=== PATIENT | male | born 1985 | race Hispanic/Latino ===

== ENCOUNTER 2017-08-16 11:21 | Emergency (ER) | payer SELFPAY ==
--- NOTE | 2017-09-08 15:14 | EKG ---
Test Reason : Blood Pressure : / mmHG Vent. Rate : 073 BPM Atrial Rate : 073 BPM P-R Int : 128 ms QRS Dur : 084 ms QT Int : 360 ms P-R-T Axes : -08 086 034 degrees QTc Int : 396 ms Normal sinus rhythm Normal ECG Confirmed by UBALDO ASHRAF, WOLFGANG ([id number]), roofing technician ARNAV TOSCANO ([id number]) on 09/08/2017 3:14:11 PM Referred By: Confirmed By:WOLFGANG CONNER MD
== END 2017-08-16 12:42 | disposition home or self-care (01) ==
LOC: ERS 11:21
DX: J11.1 Influenza due to unidentified influenza virus with other respiratory manifestations (principal); J45.909 Unspecified asthma, uncomplicated; R56.9 Unspecified convulsions; F17.210 Nicotine dependence, cigarettes, uncomplicated
CPT/HCPCS: 93005

== ENCOUNTER 2018-12-17 17:02 | Emergency (ER) | payer BC, SELFPAY ==
[2018-12-17] MEDS ORDERED: Ketorolac Tromethamine 30 MG/ML VIAL ONE (18:22)
== END 2018-12-17 18:58 | disposition home or self-care (01) ==
LOC: ERS 17:02
DX: K04.7 Periapical abscess without sinus (principal); J45.909 Unspecified asthma, uncomplicated; F17.210 Nicotine dependence, cigarettes, uncomplicated
CPT/HCPCS: 96372; J1885

== ENCOUNTER 2019-09-13 10:10 | Inpatient (IN) | payer BC ==
[2019-09-13] MEDS ORDERED: Dextrose 50% Abboject 50 ML SYRINGE SLOW IVP PRN (17:23)
[2019-09-13] MEDS ORDERED: Dextrose 5% in Water 1,000 ML IV PRN (17:23)
[2019-09-13] MEDS ORDERED: Ventilator Sedation Protocol 1 EACH FS ONE (17:38)
[2019-09-13] MEDS ORDERED: DISCONTINUE PREVIOUS NARCOTIC PAIN MEDICATIONS AND BENZODIAZEPINES FS SCH (17:46)
[2019-09-13] MEDS ORDERED: Propofol BOLUS 1,000 MG/100 ML VIAL IV PRN (17:46)
[2019-09-13] MEDS ORDERED: Morphine 2 MG/ML SYRINGE SLOW IVP PRN (17:46)
[2019-09-13] MEDS ORDERED: Fentanyl BOLUS 250 ML IVPB PRN (17:46)
[2019-09-13] MEDS ORDERED: Lorazepam 2 MG/ML VIAL SLOW IVP PRN (17:46)
[2019-09-13] MEDS: fentaNYL Citrate/PF 2,000 MCG in Sodium Chloride 0.9% 60 ML IV SCH (17:53)
[2019-09-13] MEDS: Sodium Chloride 0.9% 1,000 ML IV SCH (18:01)
[2019-09-13 18:03] VITALS: BMI 24.5
--- NOTE | 2019-09-13 18:28 | RAD ---
Chest AP view INDICATION: History of intubation and new admit COMPARISON: September 08, 2019 FINDINGS: Lungs:There are patchy airspace opacity within the left lower lobe and lingula which may reflect resi dual contusion or pulmonary edema. The right lung is clear. Cardiac silhouette:The cardiomediastinal silhouette appears within normal limits. Pulmonary vasculature:Normal Pleural spaces:There is a left-sided thoracostomy tube. No definite residual pneumothorax is noted. Upper abdomen:There is a Dobbhoff feeding tube tip projecting in the region of the gastric antrum. Osseous structures: No acute osseous abnormality. Additional findings:ET tube tip is seen at the level of thoracic inlet. IMPRESSION: Patchy opacities within the left lower lobe and lingula may reflect residual pulmonary co ntusions or residual pulmonary edema. No pneumothorax. Stable left-sided thoracostomy tubes, ET tube with a new Dobbhoff feeding tube.
[2019-09-13 18:40] LABS: #Lymphocytes 0.8 thou/uL (1.20-3.40); #Neutrophils 10.1 thou/uL (1.40-6.50); %Basophils 0.2 % (0.0-1.0); %Eosinophils 0.3 % (0.0-10.0); %Lymphocytes 6.7 % (21.0-51.0); %Monocytes 8.3 % (0.0-10.0); %Neutrophils 84.5 % (42.0-75.0); Hemoglobin 8.7 g/dL (14.0-18.0); Mean Corpuscular HGB CONC 33.6 g/dL (32.0-36.0); Mean Corpuscular Hemoglobin 32.1 pg (27.0-31.0); Mean Corpuscular Volume 95.6 fL (78.0-98.0); Mean Platelet Volume 7.9 fL (7.4-10.4); Platelet Count 255 thou/uL (130-400); RBC Distribution Width 12.9 % (11.5-14.5); Red Blood Cell (RBC) Count 2.71 mill/uL (4.70-6.10); White Blood Cell (WBC) Count 11.9 thou/uL (4.8-10.8)
[2019-09-13 18:41] LABS: Actual Bicarbonate (HCO3a) 22.6 mEq/L (22-28); Base Excess (BEa) -0.9 mEq/L (-2.0 to +3.0); CO2 Tension 32.3 mmHg (35.0-45.0); Calcium, Ionized 1.08 mmol/L (1.12-1.30); Carboxyhemoglobin (COHb) 0.4 gm% (0.0-3.0); Hemoglobin (Hb) 8.9 g/dL (14.0-18.0); O2 Tension (PaO2) 111.3 mmHg (80.0-100.0); Potassium - ABG Lab 4.05 mmol/L (3.70-5.30); pH, Arterial 7.46 (7.35-7.45)
[2019-09-13 18:42] LABS: ALV-art Gradient 133.525 (0-20); Puncture Site ALINE
[2019-09-13] MEDS ORDERED: Calcium Chloride 1 GM/10 ML Abboject SYRINGE IVP SCH (19:00)
[2019-09-13] MEDS ORDERED: Vancomycin HCl 1 GM in Premix Bag 1 BAG IVPB SCH (19:00)
[2019-09-13 19:03] LABS: Anion Gap 13 mmol/L (10-20); BUN (Urea Nitrogen) 8 mg/dL (8.9-20.6); Calc. Creatinine Clearance 167 mL/min (70-130); Calcium 7.9 mg/dL (7.8-10.44); Carbon Dioxide 20 mmol/L (22-29); Chloride 108 mmol/L (98-107); Estimated GFR-MDRD Greater than 90; Glucose 120 mg/dL (70-105); Magnesium 2.2 mg/dL (1.6-2.6); Potassium 4.3 mmol/L (3.5-5.1); Sodium 137 mmol/L (136-145)
[2019-09-13] MEDS: Piperacillin/Tazobactam 3.375 GM in Sodium Chloride 0.9% 100 ML IVPB SCH (19:47)
[2019-09-13] MEDS: Vancomycin HCl 1 GM in Premix Bag 1 BAG IVPB SCH (19:49)
[2019-09-13] MEDS ORDERED: Potassium Phosphate 30 MMOL in Sodium Chloride 0.9% 500 ML IVPB SCH (20:00)
[2019-09-13] MEDS ORDERED: Acetaminophen 500 MG TAB PO SCH (20:00)
[2019-09-13] MEDS: hydrALAZINE 20 MG/ML VIAL SLOW IVP PRN (20:11)
[2019-09-13] MEDS: Famotidine/PF 20 mg/2ml Vial SLOW IVP SCH (22:14)
[2019-09-13] MEDS: Senokot S 8.6-50 MG TAB PO SCH (22:14)
[2019-09-13] MEDS: Propofol 1,000 MG/100 ML VIAL IV PRN (22:15)
[2019-09-14] MEDS: Piperacillin/Tazobactam 3.375 GM in Sodium Chloride 0.9% 100 ML IVPB SCH ×5 (00:03→23:43)
[2019-09-14] MEDS: Acetaminophen 650 MG/20.3 ML UDCUP PO SCH ×4 (01:23→20:37)
[2019-09-14] MEDS: Propofol 1,000 MG/100 ML VIAL IV PRN ×6 (01:35→23:42)
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
[2019-09-14] MEDS: Vancomycin HCl 1 GM in Premix Bag 1 BAG IVPB SCH ×3 (03:12→20:24)
[2019-09-14 04:24] LABS: Anion Gap 17 mmol/L (10-20); BUN (Urea Nitrogen) 12 mg/dL (8.9-20.6); Calc. Creatinine Clearance 151 mL/min (70-130); Calcium 8.3 mg/dL (7.8-10.44); Carbon Dioxide 19 mmol/L (22-29); Chloride 109 mmol/L (98-107); Estimated GFR-MDRD Greater than 90; Glucose 129 mg/dL (70-105); Magnesium 2.1 mg/dL (1.6-2.6); Potassium 5.9 mmol/L (3.5-5.1); Sodium 139 mmol/L (136-145)
[2019-09-14 04:34] LABS: Band 1 % (5-11); Hemoglobin 8.4 g/dL (14.0-18.0); Lymphocytes 8 % (21-51); MDiff Complete? YES; Mean Corpuscular HGB CONC 34.8 g/dL (32.0-36.0); Mean Corpuscular Hemoglobin 32.9 pg (27.0-31.0); Mean Corpuscular Volume 94.5 fL (78.0-98.0); Mean Platelet Volume 9.6 fL (7.4-10.4); Monocytes 13 % (0-10); Neutrophil 77 % (42-75); Platelet Count 172 thou/uL (130-400); RBC Distribution Width 13.1 % (11.5-14.5); Red Blood Cell (RBC) Count 2.55 mill/uL (4.70-6.10); White Blood Cell (WBC) Count 11.2 thou/uL (4.8-10.8)
[2019-09-14] MEDS: Sodium Chloride 0.9% 1,000 ML IV SCH ×3 (05:04→23:44)
[2019-09-14] MEDS: fentaNYL Citrate/PF 2,000 MCG in Sodium Chloride 0.9% 60 ML IV SCH ×2 (05:31→19:01)
[2019-09-14 06:43] LABS: Actual Bicarbonate (HCO3a) 22.9 mEq/L (22-28); Base Excess (BEa) -1.2 mEq/L (-2.0 to +3.0); CO2 Tension 35.3 mmHg (35.0-45.0); Calcium, Ionized 1.11 mmol/L (1.12-1.30); Carboxyhemoglobin (COHb) 1.7 gm% (0.0-3.0); O2 Tension (PaO2) 103.9 mmHg (80.0-100.0); Potassium - ABG Lab 3.84 mmol/L (3.70-5.30); pH, Arterial 7.43 (7.35-7.45)
[2019-09-14 06:44] LABS: Phosphorus 3.5 mg/dL (2.3-4.7)
[2019-09-14 06:45] LABS: ALV-art Gradient 137.175 (0-20); Puncture Site ALINE
[2019-09-14] MEDS: Famotidine/PF 20 mg/2ml Vial SLOW IVP SCH ×2 (08:26→20:38)
[2019-09-14] MEDS: Senokot S 8.6-50 MG TAB PO SCH ×2 (08:26→20:38)
[2019-09-14] MEDS: Chlorhexidine Gluconate 15 ML UDCUP SSP SCH ×2 (08:26→20:38)
[2019-09-14] MEDS: Polyethylene Glycol 3350 17 GM Packet PO SCH (08:27)
[2019-09-14] MEDS ORDERED: levETIRAcetam 500 MG in Sodium Chloride 0.9% 100 ML IVPB SCH (09:00)
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
[2019-09-14 16:35] LABS: Anion Gap 12 mmol/L (10-20); BUN (Urea Nitrogen) 10 mg/dL (8.9-20.6); Calc. Creatinine Clearance 144 mL/min (70-130); Calcium 7.9 mg/dL (7.8-10.44); Carbon Dioxide 25 mmol/L (22-29); Chloride 106 mmol/L (98-107); Estimated GFR-MDRD Greater than 90; Glucose 105 mg/dL (70-105); Magnesium 1.9 mg/dL (1.6-2.6); Potassium 3.8 mmol/L (3.5-5.1); Sodium 139 mmol/L (136-145)
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
--- NOTE | 2019-09-14 18:51 | RAD ---
XR Forearm Rt 2 View STANDARD INDICATION: Postop right forearm FINDINGS: Bones: Since the comparison examination dated September 08, 2019, there has been interval open reductio n and internal fixation of the right both bone forearm fracture. Fracture alignment is near anatomic. Joints: No acute abnormality. Soft tissues: No radiopaque foreign body is evident. IMPRESSION: ORIF of the right both bone forearm fracture
[2019-09-14] MEDS: hydrALAZINE 20 MG/ML VIAL SLOW IVP PRN ×2 (19:35→23:43)
[2019-09-14 19:38] LABS: Vancomycin, Trough 7.9 ug/mL
[2019-09-14] MEDS: Vancomycin 1.5 GRAM/300 ML BAG 1.5 GM in Premix Bag 1 BAG IVPB SCH (20:48)
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
[2019-09-15] MEDS: Acetaminophen 650 MG/20.3 ML UDCUP PO SCH ×4 (01:15→20:07)
[2019-09-15] MEDS: Propofol 1,000 MG/100 ML VIAL IV PRN ×2 (03:48→07:56)
[2019-09-15] MEDS: hydrALAZINE 20 MG/ML VIAL SLOW IVP PRN ×2 (03:48→07:42)
[2019-09-15] MEDS: Vancomycin 1.5 GRAM/300 ML BAG 1.5 GM in Premix Bag 1 BAG IVPB SCH ×3 (04:00→21:17)
[2019-09-15 04:28] LABS: #Eosinphils 0.1 thou/uL (0.0-0.7); #Lymphocytes 1.1 thou/uL (1.20-3.40); #Monocytes 1.4 thou/uL (0.11-0.59); #Neutrophils 10.2 thou/uL (1.40-6.50); %Basophils 0.2 % (0.0-1.0); %Eosinophils 0.5 % (0.0-10.0); %Lymphocytes 8.7 % (21.0-51.0); %Monocytes 11.2 % (0.0-10.0); %Neutrophils 79.5 % (42.0-75.0); Mean Corpuscular HGB CONC 31.4 g/dL (32.0-36.0); Mean Corpuscular Hemoglobin 29.9 pg (27.0-31.0); Mean Corpuscular Volume 95.3 fL (78.0-98.0); Mean Platelet Volume 8.3 fL (7.4-10.4); Platelet Count 322 thou/uL (130-400); RBC Distribution Width 13.4 % (11.5-14.5); Red Blood Cell (RBC) Count 2.69 mill/uL (4.70-6.10); White Blood Cell (WBC) Count 12.9 thou/uL (4.8-10.8)
[2019-09-15] MEDS ORDERED: Metoprolol Tartrate 5 MG/5 ML VIAL IVP PRN (04:33)
[2019-09-15 04:41] LABS: Anion Gap 10 mmol/L (10-20); BUN (Urea Nitrogen) 11 mg/dL (8.9-20.6); Calc. Creatinine Clearance 154 mL/min (70-130); Calcium 7.8 mg/dL (7.8-10.44); Carbon Dioxide 24 mmol/L (22-29); Chloride 106 mmol/L (98-107); Estimated GFR-MDRD Greater than 90; Glucose 112 mg/dL (70-105); Magnesium 2.2 mg/dL (1.6-2.6); Phosphorus 3.3 mg/dL (2.3-4.7); Potassium 4.1 mmol/L (3.5-5.1); Sodium 136 mmol/L (136-145)
[2019-09-15] MEDS ORDERED: Midazolam HCl 2 mg/2 ml Vial SLOW IVP SCH ×2 (04:45)
[2019-09-15] MEDS: Piperacillin/Tazobactam 3.375 GM in Sodium Chloride 0.9% 100 ML IVPB SCH ×3 (05:17→17:32)
[2019-09-15] MEDS: fentaNYL Citrate/PF 2,000 MCG in Sodium Chloride 0.9% 60 ML IV SCH ×2 (06:44→21:11)
--- NOTE | 2019-09-15 07:41 | RAD ---
RADIOGRAPH CHEST 1 VIEW: DATE: 09/15/2019 TIME: 6:54 AM HISTORY: 34-year-old male in respiratory failure COMPARISON: 09/13/2019 FINDINGS: Dobbhoff feeding tube, separate esophagogastric tube, and probable endotracheal tube, remain. New fin ding of tiny, less than 5% left apical pneumothorax. Left-sided chest tube remains. Overlapping the chest tube, faint transverse band of pulmonary parenchymal density remains. Improvement in the airspa ce density size at left lower lobe. No pulmonary edema or cardiomegaly. IMPRESSION: 1. Tiny, less than 5% left apical pneumothorax. 2. Interval improvement in the left lower lobe atelectasis or infiltrate, now mild and subsegmental.
--- NOTE | 2019-09-15 07:46 | RAD ---
Radiograph abdomen one view: DATE: 09/15/2019 Time: 6:56 AM HISTORY: 34-year-old male status post feeding tube placement FINDINGS: Dobbhoff feeding tube distal tip is in the right upper quadrant, in the expected location of gastrodu odenal junction. Stomach is decompressed. A separate esophagogastric tube distal tip points laterally in the left upper quadrant, at gastric fundus. IMPRESSION: Dobbhoff feeding tube and standard esophagogastric tube.
[2019-09-15 08:58] LABS: Vancomycin, Trough 16.8 ug/mL
[2019-09-15] MEDS: Chlorhexidine Gluconate 15 ML UDCUP SSP SCH ×2 (09:34→20:58)
[2019-09-15] MEDS: Polyethylene Glycol 3350 17 GM Packet PO SCH (09:34)
[2019-09-15] MEDS: Senokot S 8.6-50 MG TAB PO SCH ×2 (09:35→20:08)
[2019-09-15] MEDS: Famotidine/PF 20 mg/2ml Vial SLOW IVP SCH (10:05)
[2019-09-15] MEDS ORDERED: Vecuronium 10 MG VIAL ONE (10:46)
[2019-09-15] MEDS ORDERED: Labetalol HCl 100 MG/20 ML VIAL ONE (12:09)
[2019-09-15] MEDS ORDERED: Labetalol HCl 100 MG/20 ML VIAL SLOW IVP SCH (12:15)
[2019-09-15] MEDS ORDERED: Lidocaine 1% w/Epinephrine 1:100K 20 ML VIAL ONE (13:42)
--- NOTE | 2019-09-15 14:49 | RAD ---
Exam: 1 view abdomen HISTORY: Status post Dobbhoff feeding tube placement COMPARISON: 09/15/2019 at 6:56 AM FINDINGS: Dobbhoff feeding tube appears to have slightly pulled back and is now in the proximal body of the stomach. IMPRESSION: Dobbhoff feeding tube as above.
[2019-09-15] MEDS: Sodium Chloride 0.9% 1,000 ML IV SCH (15:17)
[2019-09-15] MEDS ORDERED: Furosemide 20 MG/2 ML VIAL SLOW IVP SCH (15:30)
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
[2019-09-15] MEDS: Gabapentin 300 MG CAP PO SCH (20:08)
[2019-09-15 20:33] LABS: Vancomycin, Trough 11.5 ug/mL
[2019-09-15] MEDS: Pantoprazole 40 MG VIAL IVP SCH (20:59)
[2019-09-16] MEDS: Piperacillin/Tazobactam 3.375 GM in Sodium Chloride 0.9% 100 ML IVPB SCH ×5 (00:02→23:18)
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
[2019-09-16] MEDS: Acetaminophen 650 MG/20.3 ML UDCUP PO SCH ×4 (02:22→21:25)
[2019-09-16] MEDS: Vancomycin 1.5 GRAM/300 ML BAG 1.5 GM in Premix Bag 1 BAG IVPB SCH (04:37)
--- NOTE | 2019-09-16 08:24 | ULT ---
EXAM: Bilateral lower extremity venous Doppler US HISTORY: bilateral lower extremity edema and pain FINDINGS: Grayscale, color-flow, Doppler evaluation, spectral analysis of the bilateral lower extremities venou s structures is performed with 2-D imaging. The bilateral common femoral, superficial femoral, popliteal, posterior tibial, proximal greater saphenous and profunda femoral veins are imaged. There is normal luminal compressibility, flow, and augmentation in the visualized deep venous structu res of the bilateral lower extremities. IMPRESSION: No evidence of a deep vein thrombosis in either lower extremity.
[2019-09-16] MEDS: Chlorhexidine Gluconate 15 ML UDCUP SSP SCH ×2 (08:57→21:25)
[2019-09-16] MEDS: Pantoprazole 40 MG VIAL IVP SCH ×2 (08:57→21:26)
[2019-09-16] MEDS: Gabapentin 300 MG CAP PO SCH ×3 (08:57→21:25)
[2019-09-16] MEDS: Polyethylene Glycol 3350 17 GM Packet PO SCH (08:58)
[2019-09-16] MEDS: Senokot S 8.6-50 MG TAB PO SCH ×2 (08:58→21:26)
--- NOTE | 2019-09-16 08:58 | RAD ---
CHEST 1 VIEW: HISTORY: Chest tube removal. FINDINGS: Tracheostomy tube and Dobbhoff tubes remain in place. Removal of the left chest tube. No significan t pneumothorax. There is fairly extensive artifact overlying the chest somewhat obscuring it. No co nfluent pneumonia or overt edema. IMPRESSION: Removal of the left chest tube without significant pneumothorax. Tracheostomy tube and Dobbhoff tube . No significant new process. POS: TPC
[2019-09-16 10:15] LABS: Anion Gap 11 mmol/L (10-20); BUN (Urea Nitrogen) 20 mg/dL (8.9-20.6); Calc. Creatinine Clearance 151 mL/min (70-130); Calcium 8.4 mg/dL (7.8-10.44); Carbon Dioxide 24 mmol/L (22-29); Chloride 105 mmol/L (98-107); Estimated GFR-MDRD Greater than 90; Glucose 154 mg/dL (70-105); Phosphorus 1.8 mg/dL (2.3-4.7); Potassium 3.4 mmol/L (3.5-5.1); Sodium 137 mmol/L (136-145)
[2019-09-16] MEDS ORDERED: Potassium Phosphate 15 MMOL in Sodium Chloride 0.9% 250 ML 250 ML IVPB SCH ×2 (10:30→17:30)
[2019-09-16] MEDS: cloNIDine 0.1 MG TAB PO SCH ×2 (11:25→18:26)
[2019-09-16] MEDS: fentaNYL Citrate/PF 2,000 MCG in Sodium Chloride 0.9% 60 ML IV SCH (15:00)
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
[2019-09-16] MEDS ORDERED: Lorazepam 2 MG/ML VIAL ONE (17:05)
[2019-09-16] MEDS ORDERED: cloNIDine 0.3 MG TAB PO SCH (17:07)
[2019-09-16] MEDS ORDERED: Lorazepam 2 MG/ML VIAL SLOW IVP SCH (17:15)
[2019-09-16] MEDS: cloNIDine 0.3 MG TAB PO SCH ×2 (17:56→23:17)
[2019-09-16] MEDS: HYDROcodone/Acetaminophen 10/325 mg Tablet PO SCH ×2 (17:56→23:17)
[2019-09-16] MEDS: Enoxaparin Sodium 40 MG/0.4 ML SYRINGE SC SCH (21:25)
[2019-09-16] MEDS: Diazepam 5 MG TAB PO SCH (21:25)
[2019-09-16] MEDS: Melatonin 3 MG TAB PO SCH (21:25)
[2019-09-16] MEDS: Propofol 1,000 MG/100 ML VIAL IV PRN (23:30)
[2019-09-17] MEDS: Acetaminophen 650 MG/20.3 ML UDCUP PO SCH ×4 (02:17→19:55)
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
[2019-09-17 04:14] LABS: Anion Gap 14 mmol/L (10-20); BUN (Urea Nitrogen) 21 mg/dL (8.9-20.6); Calc. Creatinine Clearance 161 mL/min (70-130); Calcium 8.6 mg/dL (7.8-10.44); Carbon Dioxide 21 mmol/L (22-29); Chloride 107 mmol/L (98-107); Estimated GFR-MDRD Greater than 90; Glucose 100 mg/dL (70-105); Magnesium 2.3 mg/dL (1.6-2.6); Phosphorus 3.5 mg/dL (2.3-4.7); Potassium 3.8 mmol/L (3.5-5.1); Sodium 138 mmol/L (136-145)
[2019-09-17 04:26] LABS: Band 4 % (5-11); Eosinophils 4 % (0-10); Hemoglobin 8.2 g/dL (14.0-18.0); Lymphocytes 23 % (21-51); MDiff Complete? YES; Mean Corpuscular HGB CONC 32.2 g/dL (32.0-36.0); Mean Corpuscular Hemoglobin 30.7 pg (27.0-31.0); Mean Corpuscular Volume 95.4 fL (78.0-98.0); Mean Platelet Volume 8.2 fL (7.4-10.4); Monocytes 12 % (0-10); Neutrophil 56 % (42-75); Platelet Count 501 thou/uL (130-400); RBC Distribution Width 13.3 % (11.5-14.5); Reactive Lymphocytes 1 % (0-10); Red Blood Cell (RBC) Count 2.66 mill/uL (4.70-6.10); White Blood Cell (WBC) Count 12.2 thou/uL (4.8-10.8)
[2019-09-17] MEDS: HYDROcodone/Acetaminophen 10/325 mg Tablet PO SCH (05:11)
[2019-09-17] MEDS: cloNIDine 0.3 MG TAB PO SCH ×4 (05:11→23:36)
[2019-09-17] MEDS: Piperacillin/Tazobactam 3.375 GM in Sodium Chloride 0.9% 100 ML IVPB SCH (05:11)
[2019-09-17] MEDS: Propofol 1,000 MG/100 ML VIAL IV PRN (06:51)
[2019-09-17] MEDS: Chlorhexidine Gluconate 15 ML UDCUP SSP SCH ×2 (08:00→19:56)
[2019-09-17] MEDS: Polyethylene Glycol 3350 17 GM Packet PO SCH (08:01)
[2019-09-17] MEDS: Pantoprazole 40 MG VIAL IVP SCH (08:01)
[2019-09-17] MEDS: Senokot S 8.6-50 MG TAB PO SCH ×2 (08:01→19:58)
[2019-09-17] MEDS: Diazepam 5 MG TAB PO SCH ×3 (08:01→19:56)
[2019-09-17] MEDS: Gabapentin 300 MG CAP PO SCH ×3 (08:01→19:57)
[2019-09-17] MEDS: traMADol HCl 50 MG TAB PO SCH ×3 (09:57→21:22)
[2019-09-17] MEDS: Furosemide 20 MG/2 ML VIAL SLOW IVP SCH ×3 (09:59→23:54)
[2019-09-17] MEDS ORDERED: Morphine 4 MG/ML VIAL SLOW IVP PRN (15:46)
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
[2019-09-17] MEDS: Dexamethasone 4 mg/ml Vial SLOW IVP SCH ×2 (16:53→23:36)
[2019-09-17] MEDS: Ferrous Sulfate 325 MG TAB PO SCH (16:53)
[2019-09-17] MEDS: Enoxaparin Sodium 40 MG/0.4 ML SYRINGE SC SCH (19:56)
[2019-09-17] MEDS: Ascorbic Acid 500 mg Chewable Tablet PO SCH (19:56)
[2019-09-17] MEDS: Pantoprazole 40 MG GRANULES PACKET PER TUBE SCH (19:58)
[2019-09-17] MEDS: Melatonin 3 MG TAB PO SCH (19:58)
[2019-09-17] MEDS ORDERED: Cipro 250 MG TAB PO SCH (20:00)
[2019-09-18] MEDS: Acetaminophen 650 MG/20.3 ML UDCUP PO SCH ×4 (02:01→20:20)
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
[2019-09-18] MEDS: traMADol HCl 50 MG TAB PO SCH ×4 (04:10→21:32)
[2019-09-18 05:23] LABS: Anion Gap 11 mmol/L (10-20); BUN (Urea Nitrogen) 24 mg/dL (8.9-20.6); Calc. Creatinine Clearance 151 mL/min (70-130); Calcium 8.8 mg/dL (7.8-10.44); Carbon Dioxide 24 mmol/L (22-29); Chloride 104 mmol/L (98-107); Estimated GFR-MDRD Greater than 90; Glucose 149 mg/dL (70-105); Magnesium 2.3 mg/dL (1.6-2.6); Phosphorus 2.4 mg/dL (2.3-4.7); Potassium 4.2 mmol/L (3.5-5.1); Sodium 135 mmol/L (136-145)
[2019-09-18] MEDS: cloNIDine 0.3 MG TAB PO SCH ×3 (05:32→17:13)
[2019-09-18] MEDS: Dexamethasone 4 mg/ml Vial SLOW IVP SCH ×4 (05:32→23:52)
[2019-09-18] MEDS: Ferrous Sulfate 325 MG TAB PO SCH ×2 (09:15→17:30)
[2019-09-18] MEDS: Chlorhexidine Gluconate 15 ML UDCUP SSP SCH ×2 (09:16→20:28)
[2019-09-18] MEDS: Diazepam 5 MG TAB PO SCH ×3 (09:16→20:30)
[2019-09-18] MEDS: Ascorbic Acid 500 mg Chewable Tablet PO SCH ×2 (09:16→20:30)
[2019-09-18] MEDS: Senokot S 8.6-50 MG TAB PO SCH ×2 (09:17→20:29)
[2019-09-18] MEDS: Gabapentin 300 MG CAP PO SCH ×3 (09:20→20:30)
[2019-09-18] MEDS ORDERED: Sodium Chloride 0.9% (PF) 10 ML VIAL FS PRN (09:29)
[2019-09-18] MEDS ORDERED: Pantoprazole 40 MG VIAL IVP SCH ×2 (09:30→21:00)
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
[2019-09-18] MEDS: Pantoprazole 40 MG GRANULES PACKET PER TUBE SCH (11:12)
[2019-09-18] MEDS: Polyethylene Glycol 3350 17 GM Packet PO SCH (11:14)
[2019-09-18] MEDS: Melatonin 3 MG TAB PO SCH (20:30)
[2019-09-18] MEDS: Enoxaparin Sodium 40 MG/0.4 ML SYRINGE SC SCH (20:30)
[2019-09-18] MEDS ORDERED: Sodium Chloride 0.9% 500 ML IV SCH (22:45)
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
[2019-09-19] MEDS: cloNIDine 0.3 MG TAB PO SCH ×4 (00:04→17:29)
[2019-09-19] MEDS: Acetaminophen 650 MG/20.3 ML UDCUP PO SCH ×4 (01:30→19:53)
[2019-09-19] MEDS: traMADol HCl 50 MG TAB PO SCH ×4 (03:26→21:36)
[2019-09-19 03:58] LABS: Band 8 % (5-11); Hemoglobin 8.3 g/dL (14.0-18.0); Lymphocytes 2 % (21-51); MDiff Complete? YES; Mean Corpuscular HGB CONC 32.2 g/dL (32.0-36.0); Mean Corpuscular Hemoglobin 30.8 pg (27.0-31.0); Mean Corpuscular Volume 95.6 fL (78.0-98.0); Mean Platelet Volume 7.9 fL (7.4-10.4); Monocytes 3 % (0-10); Neutrophil 87 % (42-75); Platelet Count 673 thou/uL (130-400); Platelet Morphology Comment Appears Increased; Red Blood Cell (RBC) Count 2.71 mill/uL (4.70-6.10); White Blood Cell (WBC) Count 16.9 thou/uL (4.8-10.8)
[2019-09-19 04:10] LABS: Anion Gap 11 mmol/L (10-20); BUN (Urea Nitrogen) 24 mg/dL (8.9-20.6); Calc. Creatinine Clearance 149 mL/min (70-130); Calcium 8.7 mg/dL (7.8-10.44); Carbon Dioxide 22 mmol/L (22-29); Chloride 107 mmol/L (98-107); Estimated GFR-MDRD Greater than 90; Glucose 119 mg/dL (70-105); Magnesium 2.3 mg/dL (1.6-2.6); Phosphorus 2.5 mg/dL (2.3-4.7); Potassium 3.8 mmol/L (3.5-5.1); Sodium 136 mmol/L (136-145)
[2019-09-19] MEDS: HYDROcodone/Acetaminophen 10/325 mg Tablet PO PRN ×2 (04:48→19:57)
[2019-09-19] MEDS: Dexamethasone 4 mg/ml Vial SLOW IVP SCH ×2 (05:30→13:05)
[2019-09-19] MEDS: Chlorhexidine Gluconate 15 ML UDCUP SSP SCH ×2 (10:10→21:32)
[2019-09-19] MEDS: Ascorbic Acid 500 mg Chewable Tablet PO SCH ×2 (10:11→21:32)
[2019-09-19] MEDS: Pantoprazole 40 MG GRANULES PACKET PER TUBE SCH (10:11)
[2019-09-19] MEDS: Ferrous Sulfate 325 MG TAB PO SCH ×2 (10:11→17:29)
[2019-09-19] MEDS: Diazepam 5 MG TAB PO SCH ×3 (10:11→20:05)
[2019-09-19] MEDS: Gabapentin 300 MG CAP PO SCH ×3 (10:11→20:05)
[2019-09-19] MEDS: Polyethylene Glycol 3350 17 GM Packet PO SCH (10:12)
[2019-09-19] MEDS: Metamucil PACK PO SCH ×2 (10:12→21:32)
[2019-09-19] MEDS: Senokot S 8.6-50 MG TAB PO SCH ×2 (10:12→21:32)
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
[2019-09-19] MEDS: Enoxaparin Sodium 40 MG/0.4 ML SYRINGE SC SCH (20:01)
[2019-09-19] MEDS: Melatonin 3 MG TAB PO SCH (20:05)
--- NOTE | 2019-09-19 20:46 | RAD ---
PORTABLE CHEST ONE VIEW: 09/19/19 at 8:12 p.m. HISTORY: Fever, pneumonia. FINDINGS: Comparison made with exam of 09/16/2019. The tracheostomy tube and feeding tube are again seen. The heart size is normal. No focal areas of co nsolidation, pneumothoraces, or pleural effusions are noted. IMPRESSION: No acute process. POS: OFF
[2019-09-19 22:06] LABS: Bacteria/HPF None Seen HPF (None Seen); Bilirubin Negative (Negative); Blood, Urine Negative (Negative); Calcium Oxalate Crystals Rare HPF (None Seen); Clarity Clear (Clear); Glucose, Urine (Dipstick) Normal (Negative); Leukocyte Negative Leu/uL (Negative); Mucous/LPF 2+ LPF (<2+); Nitrite Negative (Negative); Protein, Urine (Dipstick) 20 mg/dL (Neg-Trace); RBC/HPF 0-3 HPF (0-3); Squamous Epithelial None Seen HPF (0-3); Urobilinogen Normal mg/dL (Less than 2); WBC/HPF 0-3 HPF (0-3)
[2019-09-19 22:08] LABS: Urine Culture Reflex No No
[2019-09-20] MEDS: cloNIDine 0.3 MG TAB PO SCH ×2 (00:02→06:00)
[2019-09-20] MEDS: Acetaminophen 650 MG/20.3 ML UDCUP PO SCH ×4 (02:58→20:22)
[2019-09-20] MEDS: traMADol HCl 50 MG TAB PO SCH ×4 (02:58→22:06)
[2019-09-20 06:05] LABS: Band 4 % (5-11); Elliptocytes SLIGHT = 2-5 cells (100X) (0-1/hpf); Hemoglobin 7.9 g/dL (14.0-18.0); Lymphocytes 18 % (21-51); MDiff Complete? YES; Mean Corpuscular HGB CONC 33.6 g/dL (32.0-36.0); Mean Corpuscular Hemoglobin 32.4 pg (27.0-31.0); Mean Corpuscular Volume 96.3 fL (78.0-98.0); Mean Platelet Volume 7.7 fL (7.4-10.4); Metamyelocyte 1 % (0-0); Monocytes 7 % (0-10); Neutrophil 67 % (42-75); Platelet Count 700 thou/uL (130-400); Platelet Morphology Comment Appears Increased; RBC Distribution Width 14.4 % (11.5-14.5); Reactive Lymphocytes 2 % (0-10); Red Blood Cell (RBC) Count 2.45 mill/uL (4.70-6.10); White Blood Cell (WBC) Count 14.4 thou/uL (4.8-10.8)
[2019-09-20] MEDS: Diazepam 5 MG TAB PO SCH ×3 (09:11→20:23)
[2019-09-20] MEDS: Senokot S 8.6-50 MG TAB PO SCH ×2 (09:11→20:24)
[2019-09-20] MEDS: Gabapentin 300 MG CAP PO SCH ×3 (09:11→20:23)
[2019-09-20] MEDS: Ferrous Sulfate 325 MG TAB PO SCH ×2 (09:11→16:18)
[2019-09-20] MEDS: Polyethylene Glycol 3350 17 GM Packet PO SCH (09:12)
[2019-09-20] MEDS: Ascorbic Acid 500 mg Chewable Tablet PO SCH ×2 (09:12→20:24)
[2019-09-20] MEDS: Pantoprazole 40 MG GRANULES PACKET PER TUBE SCH (09:12)
[2019-09-20] MEDS: Chlorhexidine Gluconate 15 ML UDCUP SSP SCH ×2 (09:13→20:22)
[2019-09-20] MEDS: Metamucil PACK PO SCH ×3 (09:13→20:24)
[2019-09-20] MEDS: cloNIDine 0.1 MG TAB PO SCH ×3 (10:05→22:05)
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
[2019-09-20] MEDS: Enoxaparin Sodium 40 MG/0.4 ML SYRINGE SC SCH (20:22)
[2019-09-20] MEDS: HYDROcodone/Acetaminophen 10/325 mg Tablet PO PRN (20:23)
[2019-09-20] MEDS: Melatonin 3 MG TAB PO SCH (20:24)
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
[2019-09-21] MEDS: Acetaminophen 650 MG/20.3 ML UDCUP PO SCH ×4 (02:53→19:52)
[2019-09-21] MEDS: traMADol HCl 50 MG TAB PO SCH ×4 (02:53→22:06)
[2019-09-21] MEDS: cloNIDine 0.1 MG TAB PO SCH ×4 (04:38→22:07)
[2019-09-21] MEDS: Ascorbic Acid 500 mg Chewable Tablet PO SCH ×2 (09:49→19:52)
[2019-09-21] MEDS: Diazepam 5 MG TAB PO SCH ×3 (09:49→19:53)
[2019-09-21] MEDS: Pantoprazole 40 MG GRANULES PACKET PER TUBE SCH (09:49)
[2019-09-21] MEDS: Chlorhexidine Gluconate 15 ML UDCUP SSP SCH ×2 (09:49→19:53)
[2019-09-21] MEDS: Ferrous Sulfate 325 MG TAB PO SCH ×2 (09:49→17:42)
[2019-09-21] MEDS: Gabapentin 300 MG CAP PO SCH ×3 (09:49→19:53)
[2019-09-21] MEDS: Senokot S 8.6-50 MG TAB PO SCH ×2 (10:05→19:54)
[2019-09-21] MEDS: Metamucil PACK PO SCH ×2 (10:05→19:54)
[2019-09-21] MEDS: Polyethylene Glycol 3350 17 GM Packet PO SCH (10:05)
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
[2019-09-21] MEDS: HYDROcodone/Acetaminophen 10/325 mg Tablet PO PRN (19:53)
[2019-09-21] MEDS: Melatonin 3 MG TAB PO SCH (19:53)
[2019-09-21] MEDS: Enoxaparin Sodium 40 MG/0.4 ML SYRINGE SC SCH (19:53)
[2019-09-22] MEDS: Acetaminophen 650 MG/20.3 ML UDCUP PO SCH ×3 (03:00→15:05)
[2019-09-22] MEDS: traMADol HCl 50 MG TAB PO SCH ×3 (03:00→15:05)
[2019-09-22] MEDS: cloNIDine 0.1 MG TAB PO SCH ×3 (03:01→15:06)
[2019-09-22] MEDS ORDERED: Aspirin 325 MG TAB PO SCH (09:00)
[2019-09-22] MEDS: Pantoprazole 40 MG GRANULES PACKET PER TUBE SCH (09:39)
[2019-09-22] MEDS: Ferrous Sulfate 325 MG TAB PO SCH ×2 (09:39→15:06)
[2019-09-22] MEDS: Diazepam 5 MG TAB PO SCH ×2 (09:40→15:05)
[2019-09-22] MEDS: Ascorbic Acid 500 mg Chewable Tablet PO SCH (09:40)
[2019-09-22] MEDS: Gabapentin 300 MG CAP PO SCH ×2 (09:41→15:05)
[2019-09-22] MEDS: Chlorhexidine Gluconate 15 ML UDCUP SSP SCH (09:42)
[2019-09-22] MEDS: Polyethylene Glycol 3350 17 GM Packet PO SCH (09:43)
[2019-09-22] MEDS: Senokot S 8.6-50 MG TAB PO SCH (09:44)
[2019-09-22] MEDS: Metamucil PACK PO SCH (09:44)
[2019-09-22] MEDS ORDERED: Polyethylene Glycol 3350 17 GM Packet PO PRN (13:29)
[2019-09-22] MEDS ORDERED: Senokot S 8.6-50 MG TAB PO PRN (13:30)
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
[2019-09-22 15:58] VITALS: BP 135/78; TEMP 97.8
== END 2019-09-22 18:00 | DRG 4 ==
LOC: CCU 16:35 → SURG A 09-19 11:07
PROVIDERS: ADMIT Surgery; ATTEND Surgery
PROC: 5A1955Z Respiratory Ventilation, Greater than 96 Consecutive Hours (ICD-10-PCS; 2019-09-13)
PROC: 0B113F4 Bypass Trachea to Cutaneous with Tracheostomy Device, Percutaneous Approach (ICD-10-PCS; principal; 2019-09-15)
DX: S13.111A Dislocation of C0/C1 cervical vertebrae, initial encounter (principal); J96.01 Acute respiratory failure with hypoxia; R53.2 Functional quadriplegia; J14 Pneumonia due to Hemophilus influenzae; R40.2213 Coma scale, best verbal response, none, at hospital admission; S27.2XXA Traumatic hemopneumothorax, initial encounter; S06.5X9A Traumatic subdural hemorrhage with loss of consciousness of unspecified duration, initial encounter; S52.91XA Unspecified fracture of right forearm, initial encounter for closed fracture; S52.201A Unspecified fracture of shaft of right ulna, initial encounter for closed fracture; S14.121A Central cord syndrome at C1 level of cervical spinal cord, initial encounter; D72.829 Elevated white blood cell count, unspecified; R40.2363 Coma scale, best motor response, obeys commands, at hospital admission; R40.2133 Coma scale, eyes open, to sound, at hospital admission; V89.2XXA Person injured in unspecified motor-vehicle accident, traffic, initial encounter; Z79.899 Other long term (current) drug therapy; Z98.1 Arthrodesis status
CPT/HCPCS: 36415; 36416; 71045; 74018; 74230; 80048; 80202; 81001; 82805; 83735; 84100; 85007; 85025; 85027; 87040; 87070; 87086; 87205; 93970; 94002; 94003; 94640; C1752; C9113; J0360; J1100; J1650; J1940; J1953; J2060; J2250; J2270; J2543; J2704; J3010; J3370; J3490; J7050; J7620; S0028